=== PATIENT | female | born 1960 | race African-American/Black ===

== ENCOUNTER 2018-11-17 15:44 | Emergency (ER) | payer OTHER ==
[~2018-11-17] VITALS: Ht 167.6 cm; Wt 81.7 kg
[2018-11-17] MEDS ORDERED: NAPROSYN500 MG PO (17:13)
[2018-11-17 17:33] VITALS: BP 153/88
[2018-11-17] MEDS ORDERED: LISINOPRIL20 MG PO (17:36)
== END 2018-11-17 17:40 | disposition home or self-care (01) ==
LOC: ER 15:44
DX: S56.011A Strain of flexor muscle, fascia and tendon of right thumb at forearm level, initial encounter (principal); X50.1XXA Overexertion from prolonged static or awkward postures, initial encounter; Y92.89 Other specified places as the place of occurrence of the external cause; Y99.0 Civilian activity done for income or pay; Y99.8 Other external cause status